=== PATIENT | male | born 1985 | race Caucasian/White ===

== ENCOUNTER 2023-12-03 07:06 | Emergency (ER) | payer MEDICAID ==
[~2023-12-03] VITALS: Ht 177.8 cm; Wt 75.0 kg
[2023-12-03 07:20] VITALS: O2SAT 100
[2023-12-03] MEDS: IBUPROFEN 400MG TABLET PO ONE (07:54)
[2023-12-03] MEDS ORDERED: IBUP-2028 PO (08:29)
[2023-12-03 08:47] VITALS: BP 149/91; PULSE 93; RESP 18; TEMP 36.83628; O2SAT 98
== END 2023-12-03 08:48 | disposition home or self-care (01) ==
LOC: ER 07:06
DX: M25.511 Pain in right shoulder (principal)
CPT/HCPCS: 73030; 99283; A4565

== ENCOUNTER 2025-01-07 12:05 | Emergency (ER) | payer MEDICAID ==
[~2025-01-07] VITALS: Ht 180.3 cm; Wt 79.0 kg
[~2025-01-07 12:05] MED LIST: IBUP-2028 PO
[2025-01-07 12:17] VITALS: O2SAT 98
[2025-01-07 13:05] LABS: BASOPHILS % 0.5 % (0.0-2.0); EOSINOPHILS % 0.6 % (0.0-5.0); HEMATOCRIT. 43.5 % (42.0-52.0); HEMOGLOBIN. 14.7 g/dL (14.0-18.0); LYMPHOCYTES % 26.6 % (20.0-50.0); MEAN PLATELET VOLUME 7.9 fl (7.4-10.4); MONOCYTES % 10.4 % (2.0-8.0); NEUTROPHILS % 61.9 % (40.0-76.0); PLATELET 233 x1000/uL (130-400); RED BLOOD CELL COUNT 4.59 mill/uL (4.7-6.1); RED CELL DISTRIBUTION WIDTH 13.1 % (11.6-14.6)
[2025-01-07 13:32] LABS: CREATININE 0.8 mg/dL (0.6-1.3); UREA NITROGEN BLOOD 7 mg/dL (9-23)
[2025-01-07 13:33] LABS: TROPONIN I HIGH SENSITIVITY < 4 ng/L (3.0-53)
[2025-01-07 13:34] LABS: ASPARTATE AMINOTRANSFERASE 41 IU/L (<34); BILIRUBIN DIRECT < 0.1 mg/dL (<=3.0); BILIRUBIN TOTAL 0.4 mg/dL (0.1-1.0); PROTEIN TOTAL 7.5 g/dL (6.0-8.3)
[2025-01-07 13:44] VITALS: BP 130/80; PULSE 104; RESP 18; TEMP 36.9; O2SAT 100
== END 2025-01-07 14:05 | disposition home or self-care (01) ==
LOC: ER 12:05
DX: T54.2X1A Toxic effect of corrosive acids and acid-like substances, accidental (unintentional), initial encounter (principal); Z79.1 Long term (current) use of non-steroidal anti-inflammatories (NSAID); Z79.899 Other long term (current) drug therapy; Y92.89 Other specified places as the place of occurrence of the external cause
CPT/HCPCS: 36415; 71045; 80048; 80076; 80320; 80329; 82140; 83735; 84484; 85025; 99284; G0480

== ENCOUNTER 2025-01-26 09:11 | Emergency (ER) | payer MEDICAID ==
[~2025-01-26] VITALS: Ht 175.3 cm; Wt 75.0 kg
[2025-01-26 09:31] VITALS: O2SAT 98
[2025-01-26] MEDS ORDERED: CEPH250C2 PO (10:15)
[2025-01-26] MEDS ORDERED: SULF1TAB48 PO (10:15)
[2025-01-26 10:22] VITALS: BP 150/99; PULSE 99; RESP 17; TEMP 36.7; O2SAT 98
== END 2025-01-26 10:23 | disposition home or self-care (01) ==
LOC: ER 09:11
DX: L03.115 Cellulitis of right lower limb (principal); Z79.1 Long term (current) use of non-steroidal anti-inflammatories (NSAID)
CPT/HCPCS: 99283

== ENCOUNTER 2025-02-16 16:31 | Emergency (ER) | payer MEDICAID ==
[~2025-02-16] VITALS: Ht 175.3 cm; Wt 66.0 kg
[~2025-02-16 16:31] MED LIST changes: +CEPH250C2 PO; +SULF1TAB48 PO
[2025-02-16 16:37] VITALS: O2SAT 97
[2025-02-16 17:13] VITALS: BP 130/72; PULSE 80; RESP 18; TEMP 36.7; O2SAT 97
== END 2025-02-16 17:31 | disposition home or self-care (01) ==
LOC: ER 16:31
DX: T16.1XXA Foreign body in right ear, initial encounter (principal); Z79.1 Long term (current) use of non-steroidal anti-inflammatories (NSAID); W44.G1XA Audio device entering into or through a natural orifice, initial encounter; Y93.89 Activity, other specified; Y92.89 Other specified places as the place of occurrence of the external cause; Y99.8 Other external cause status
CPT/HCPCS: 69200; 99284